=== PATIENT | female | born 1985 | race Caucasian/White ===

== ENCOUNTER 2020-12-05 07:54 | Day surgery (SDC) | payer OTHER ==
[2020-12-05] MEDS ORDERED: [UNRECOGNIZED DRUG - OTHER] PO (08:40)
== END 2020-12-05 16:30 | disposition home or self-care (01) ==
LOC: CIR.AMB 07:54
PROVIDERS: ATTEND Obstetrics & Gynecology
DX: O02.1 Missed abortion (principal); Z20.822 Contact with and (suspected) exposure to COVID-19

== ENCOUNTER 2022-06-02 12:49 | Emergency (ER) | payer OTHER ==
[~2022-06-02] VITALS: Ht 160 cm; Wt 113.4 kg
[~2022-06-02 12:49] MED LIST: [UNRECOGNIZED DRUG - OTHER] PO
== END 2022-06-02 17:57 | disposition home or self-care (01) ==
LOC: ER 12:49
DX: O23.43 Unspecified infection of urinary tract in pregnancy, third trimester (principal); N39.0 Urinary tract infection, site not specified; Z3A.35 35 weeks gestation of pregnancy

== ENCOUNTER 2022-06-24 11:46 | Inpatient (IN) | payer OTHER ==
[~2022-06-24] VITALS: Ht 160 cm; Wt 2.7 kg
[2022-06-24] MEDS ORDERED: PRENATAL TABLE1 EAC1 PO (12:02)
== END 2022-06-27 14:15 | disposition home or self-care (01) | DRG 788 ==
LOC: LDR 11:46 → OB/GYN 11:46 → O/R 20:09 → OB/GYN 21:51
PROVIDERS: ADMIT Obstetrics & Gynecology Gynecology; ATTEND Obstetrics & Gynecology Gynecology
PROC: 3E033VJ Introduction of Other Hormone into Peripheral Vein, Percutaneous Approach (ICD-10-PCS; 2022-06-24)
PROC: 4A1HXCZ Monitoring of Products of Conception, Cardiac Rate, External Approach (ICD-10-PCS; 2022-06-24)
PROC: 10D00Z1 Extraction of Products of Conception, Low, Open Approach (ICD-10-PCS; principal; 2022-06-24 19:00)
DX: O61.0 Failed medical induction of labor (principal); O62.0 Primary inadequate contractions; O36.8130 Decreased fetal movements, third trimester, not applicable or unspecified; Z3A.38 38 weeks gestation of pregnancy; Z37.0 Single live birth; Z20.822 Contact with and (suspected) exposure to COVID-19